=== PATIENT | male | born 1975 ===

== ENCOUNTER 2020-03-31 12:01 | Inpatient (IN) | payer MEDICARE ==
[~2020-03-31] VITALS: Ht 172.7 cm; Wt 72.7 kg
[2020-03-31 13:02] LABS: BASOPHILS 0.1 % (0-2); EOSINOPHILS 1.7 % (0-7); HEMATOCRIT 40.9 % (42.0-54.0); HEMOGLOBIN 13.9 g/dL (13.5-17.5); IMMATURE GRANULOCYTES 0.3 % (0-5); MCH 30.9 pg (26.0-34.0); MCV 90.9 fL (80.0-100.0); MEAN PLATELET VOLUME 9.7 fL (7.4-10.4); MONOCYTES 8.2 % (2-11); NEUTROPHILS 69.7 % (40-80); PLATELET COUNT 181 10x3/uL (130-400); RDW 12.8 % (11.5-14.5); WBC 9.7 10x3/uL (4.8-10.8)
[2020-03-31 13:06] LABS: CALC OSMOLALITY 278 mosm/kg (275-300); CALCIUM 8.2 mg/dL (8.5-10.1); CARBON DIOXIDE 28.9 mmol/L (21.0-32.0); CHLORIDE - SERUM 103 mmol/L (98-107); CREATININE - SERUM 0.9 mg/dL (0.6-1.3); GLUCOSE 143 mg/dL (74-106); POTASSIUM - SERUM 3.6 mmol/L (3.5-5.1); SODIUM 140 mmol/L (136-145); UREA NITROGEN 7 mg/dL (7-18); eGFR NON AFRICAN AMERICAN > 90 mL/min (90-120)
[2020-03-31 13:07] LABS: APTT 33.8 SECONDS (22.8-39.4); PROTIME 13.2 SECONDS (11.6-15.0)
[2020-03-31 13:12] LABS: ALBUMIN 3.1 g/dL (3.4-5.0); ALKALINE PHOSPHATASE 84 U/L (30-120); ALT (SGPT) 13 U/L (10-68); BILIRUBIN - TOTAL 0.24 mg/dL (0.2-1.3); PROTEIN - SERUM 6.7 g/dL (6.4-8.2)
[2020-03-31 15:46] VITALS: BP 125/70
[2020-03-31] MEDS ORDERED: HALDOL5 MG PO (16:59)
[2020-03-31] MEDS ORDERED: ZYPREXA10 MG PO (17:00)
--- NOTE | 2020-03-31 17:00 | NUR ---
RECEIVED TO ROOM 2202 VIA WC FROM ER. A/O X3. NO C/O AT THIS TIME. QUARTER SIZED WOUND TO BACK OF NECK, PURULENT DRAINAGE NOTED. CLEANED WITH NS AND COVERED WITH 4X4 PER PATIENT REQUEST. SUPPER SERVED IN ROOM. ATE ALL OF MEAL.
[2020-03-31] MEDS ORDERED: BENZTROPINE MESY2 MG PO (17:01)
[2020-03-31 17:06] VITALS: BP 148/78
[2020-03-31 17:30] VITALS: BP 148/78; BMI 24.3
--- NOTE | 2020-03-31 19:07 | NUR ---
ATE ALL OF DINNER. DENIES NEEDS.
--- NOTE | 2020-03-31 19:30 | NUR ---
RECEIVED REPORT, DENIES NEEDS, BED LOWEST POSITION, CALL LIGHT IN REACH, IV PATENT, INFORMED PT TO NOTIFY STAFF IF THEY NEED ANYTHING
[2020-03-31 20:47] VITALS: BP 142/60
[2020-04-01 00:58] VITALS: BP 135/82
[2020-04-01 05:32] VITALS: BP 118/77
[2020-04-01 07:13] LABS: BASOPHILS 0.1 % (0-2); EOSINOPHILS 2.6 % (0-7); HEMATOCRIT 46.5 % (42.0-54.0); HEMOGLOBIN 15.3 g/dL (13.5-17.5); IMMATURE GRANULOCYTES 0.3 % (0-5); MCH 30.8 pg (26.0-34.0); MCHC 32.9 g/dL (31.0-37.0); MEAN PLATELET VOLUME 10.4 fL (7.4-10.4); MONOCYTES 9.8 % (2-11); NEUTROPHILS 56.2 % (40-80); RBC 4.97 10x6/uL (4.20-6.10); RDW 13.2 % (11.5-14.5); WBC 9.4 10x3/uL (4.8-10.8)
[2020-04-01 07:17] LABS: MCV 93.6 fL (80.0-100.0); PLATELET COUNT 229 10x3/uL (130-400)
--- NOTE | 2020-04-01 07:30 | NUR ---
AWAKE AND ALERT. UP TO BR PER SELF. REPORTED GOOD NORMAL BM. LUNGS ARE CLEAR BILATERALLY, NO COUGH NOTED. SKIN IS INTACT WITHOUT REDNESS EXCEPT WOUND TO BACK OF NECK WHICH HAS A DRY INTACT DRESSING IN PLACE. IV TO LEFT FOREARM IS PATENT WITHOUT REDNESS AT INSERTION SITE. DENIES NEEDS.
[2020-04-01 07:51] LABS: ALBUMIN 3.5 g/dL (3.4-5.0); ALKALINE PHOSPHATASE 93 U/L (30-120); ALT (SGPT) 16 U/L (10-68); BILIRUBIN - TOTAL 0.25 mg/dL (0.2-1.3); CALC OSMOLALITY 280 mosm/kg (275-300); CALCIUM 8.7 mg/dL (8.5-10.1); CARBON DIOXIDE 28.7 mmol/L (21.0-32.0); CHLORIDE - SERUM 104 mmol/L (98-107); CREATININE - SERUM 0.8 mg/dL (0.6-1.3); PROTEIN - SERUM 7.2 g/dL (6.4-8.2); SODIUM 143 mmol/L (136-145); UREA NITROGEN 8 mg/dL (7-18); eGFR NON AFRICAN AMERICAN > 90 mL/min (90-120)
[2020-04-01 08:01] LABS: GLUCOSE 62 mg/dL (74-106)
[2020-04-01 09:37] VITALS: BP 117/63
[2020-04-01 10:52] VITALS: Ht 172.7 cm; Wt 72.7 kg
--- NOTE | 2020-04-01 10:58 | NUR ---
ATE ALL OF BREAKFAST. TOOK AM MEDS WITHOUT DIFFICULTY.
[2020-04-01 12:00] VITALS: BP 134/79
--- NOTE | 2020-04-01 12:00 | NUR ---
AMELIA ANXIOUS TO BE ABLE TO GO HOME TODAY. STATED HE ISN'T DIABETIC AND WOULDNT LET US DO HIS FS. DOESN'T WANT IV AB AT THIS TIME. STATED HE IS GOING HOME.
[2020-04-01] MEDS ORDERED: VIBRAMYCIN 100100 MG PO (13:12)
--- NOTE | 2020-04-01 14:45 | NUR ---
DISCHARGED TO HOME AMBULATORY PER SELF. DISCHARGE INSTRUCTIONS GIVEN BOTH VERBALLY AND WRITTEN. ALL QUESTIONS ANSWERED. PATIENT VERBALYZED UNDERSTANDING OF SAME. IV TO LEFT FOREARM D/C WITH CATHETER INTACT. ALL BELONGINGS WITH PATIENT.
--- NOTE | 2020-04-01 16:33 | MORECARE ---
CASE MANAGEMENT DISCHARGE SUMMARY PATIENT: MATILDA VÁSQUEZ UNIT: [id number] ADM DATE: 03/31/20 AGE: 44 : [birth year] SEX: M ROOM/BED: D.2202 AUTHOR: ROSELINE SPIVEY PHYSICIAN: REFERRING PHYSICIAN: DAVID CUTLER MD DATE OF SERVICE: 04/01/20 Discharge Plan Patient Name: MATILDA VÁSQUEZ Facility: [facility]:[place] : 1975 Planned Disposition: Home with Home Health Anticipated Discharge Date: 04/01/20 Discharge Date: 04/01/2020 Expected LOS: 1 Initial Reviewer: FLACO Initial Review Date: 04/01/2020 Generated: 04/01/20 5:32 pm DCPIA - Discharge Planning Initial Assessment Updated by FLACO: Lamont Palumbo on 04/01/20 4:32 pm * Is the patient Alert and Oriented? Yes * How many steps to enter\exit or inside your home? 0/0 * PCP Lizandro Gross * Pharmacy [facility] * Preadmission Environment Independent [facility] * Facility Name [facility] * ADLs Independent * Equipment None * List name and contact numbers for known caregivers / representatives who currently or will assist patient after discharge: NONE * Verbal permission to speak to the caregivers and representatives has been obtained from the patient. N/A * Community resources currently utilized None * Additional services required to return to the preadmission environment? Yes * Can the patient safely return to the preadmission environment? Yes * Has this patient been hospitalized within the prior 30 days at any hospital? No External Providers External Provider: [facility] Next Contact Date: Service Request Date: Service Type: Resolution: Reviewer: Comments: Coverage Notice Reviewer: [id number] Angelita Palumbo Notice Issued Date-Time: 04/01/2020 13:45 Notice Type: IM Discharge Notice Notice Delivered To: Patient Relationship to Patient: Self Wildlife Conservation Professor Name: Delivery Method: HAND - Hand Delivered Sophie Days: Prior Verbal Notification: Recipient Understood Notice: Yes Recipient Signature: Yes Med Rec Note Co-signed by Attending: Coverage Notice Comment: DC IMM delivered, explained, signed by the patient, and placed in chart. Signed form also left with the patient. Reviewer: FLACO Morinnes Notice Issued Date-Time: 04/01/2020 13:45 Notice Type: Patient Choice Letter Notice Delivered To: Patient Relationship to Patient: Self Wildlife Conservation Professor Name: Delivery Method: HAND - Hand Delivered Sophie Days: Prior Verbal Notification: Recipient Understood Notice: Yes Recipient Signature: Yes Med Rec Note Co-signed by Attending: Coverage Notice Comment: CARE IV HHS Patient Name: MATILDA VÁSQUEZ Page [id number] at 1633 All edits/amendments must be made on the electronic document DICTATION DATE: 04/01/20 1633 TOPSTITCHER LOCKSTITCH: KATIE 04/01/20 1633 RPT#: [id number] DC DATE:04/01/20 STATUS: DIS IN [facility] [address] [place] [address] END OF REPORT
--- NOTE | 2020-04-01 16:40 | MORECARE ---
CASE MANAGEMENT DISCHARGE SUMMARY PATIENT: MATILDA VÁSQUEZ UNIT: [id number] ADM DATE: 03/31/20 AGE: 44 : 77 SEX: M ROOM/BED: D.2202 AUTHOR: ROSELINE SPIVEY PHYSICIAN: REFERRING PHYSICIAN: DAVID CUTLER MD DATE OF SERVICE: 04/01/20 Discharge Plan Patient Name: MATILDA VÁSQUEZ Facility: [facility]:[place] : 1975 Planned Disposition: Home with Home Health Anticipated Discharge Date: 04/01/20 Discharge Date: 04/01/2020 Expected LOS: 1 Initial Reviewer: [id number] Initial Review Date: 04/01/2020 Generated: 04/01/20 5:39 pm Comments DCP- Discharge Planning Updated by [id number]: Lamont Palumbo on 04/01/20 3:[address] Patient Name: MATILDA VÁSQUEZ Admission Status: Elective Accout number: [id number] Admission Date: 03-31-2020 : 1975 Admission Diagnosis: Attending: DAVID CUTLER Current LOS: 1 Anticipated DC Date: 04-01-2020 Planned Disposition: Home with Home Health Primary Insurance: MEDICARE A & B Discharge Planning Comments: CM met with patient for DC planning. Patient is in agreement with DC Plan. Patient lives in a group home home at [facility]. Patient has 0 steps to navigate to enter his home. PCP: Dr. QURESHI. Pharmacy: [facility]. DME: NONE. Emergency contact: NONE. CM discussed HHS, OP Therapy, SNF, Rehab. Patient states he would like [facility]. GORGE signed for same. CM notified Jacque with [facility] ([phone]) and faxed clinicals. Patient voices no other needs at this time. CM will follow and assist PRN.3 Shingle Trimmer: Lamont Palumbo DCPIA - Discharge Planning Initial Assessment Updated by [id number]: Lamont Palumbo on 04/01/20 4:32 pm * Is the patient Alert and Oriented? Yes * How many steps to enter\exit or inside your home? 0/0 * PCP Lizandro Gross * Pharmacy [facility] * Preadmission Environment Independent [facility] * Facility Name [facility] * ADLs Independent * Equipment None * List name and contact numbers for known caregivers / representatives who currently or will assist patient after discharge: NONE * Verbal permission to speak to the caregivers and representatives has been obtained from the patient. N/A * Community resources currently utilized None * Additional services required to return to the preadmission environment? Yes * Can the patient safely return to the preadmission environment? Yes * Has this patient been hospitalized within the prior 30 days at any hospital? No Coverage Notice Reviewer: FLACO Palumbo Notice Issued Date-Time: 04/01/2020 13:45 Notice Type: IM Discharge Notice Notice Delivered To: Patient Relationship to Patient: Self Receiving Barn Custodian Name: Delivery Method: HAND - Hand Delivered Sophie Days: Prior Verbal Notification: Recipient Understood Notice: Yes Recipient Signature: Yes Med Rec Note Co-signed by Attending: Coverage Notice Comment: DC IMM delivered, explained, signed by the patient, and placed in chart. Signed form also left with the patient. Reviewer: [id number] Palumbo Notice Issued Date-Time: 04/01/2020 13:45 Notice Type: Patient Choice Letter Notice Delivered To: Patient Relationship to Patient: Self Receiving Barn Custodian Name: Delivery Method: HAND - Hand Delivered Sophie Days: Prior Verbal Notification: Recipient Understood Notice: Yes Recipient Signature: Yes Med Rec Note Co-signed by Attending: Coverage Notice Comment: CARE IV HHS Last DP export: 04/01/20 3:33 Patient Name: MATILDA VÁSQUEZ Page [phone] at 1640 All edits/amendments must be made on the electronic document DICTATION DATE: 04/01/20 163 ORE ROASTER: KATIE 04/01/20 163 RPT#: [id number] DC DATE:04/01/20 STATUS: DIS IN [facility] [address] [place] [address] END OF REPORT
--- NOTE | 2020-04-02 09:33 | MORECARE ---
CASE MANAGEMENT DISCHARGE SUMMARY PATIENT: MATILDA VÁSQUEZ UNIT: [id number] ADM DATE: 03/31/20 AGE: 44 : 77 SEX: M ROOM/BED: D.2202 AUTHOR: ROSELINE SPIVEY PHYSICIAN: REFERRING PHYSICIAN: DAVID CUTLER MD DATE OF SERVICE: 04/02/20 Discharge Plan Patient Name: MATILDA VÁSQUEZ Facility: [facility]:[place] : 1975 Planned Disposition: Home with Home Health Anticipated Discharge Date: 04/01/20 Discharge Date: 04/01/2020 Expected LOS: 1 Initial Reviewer: [id number] Initial Review Date: 04/01/2020 Generated: 04/02/20 10:32 am Comments DCP- Discharge Planning Updated by [email or web address]: Lamont Palumbo on 04/01/20 3:[address] Patient Name: MATILDA VÁSQUEZ Admission Status: Elective Accout number: [id number] Admission Date: 03-31-2020 : 1975 Admission Diagnosis: Attending: DAVID CUTLER Current LOS: 1 Anticipated DC Date: 04-01-2020 Planned Disposition: Home with Home Health Primary Insurance: MEDICARE A & B Discharge Planning Comments: CM met with patient for DC planning. Patient is in agreement with DC Plan. Patient lives in a assisted home at [facility]. Patient has 0 steps to navigate to enter his home. PCP: Dr. QURESHI. Pharmacy: [facility]. DME: NONE. Emergency contact: NONE. CM discussed HHS, OP Therapy, SNF, Rehab. Patient states he would like [facility]. GORGE signed for same. CM notified Jacque with [facility] ([phone]) and faxed clinicals. Patient voices no other needs at this time. CM will follow and assist PRN.3 Fertilizer Mixer: Lamont Palumbo DCPIA - Discharge Planning Initial Assessment Updated by [email or web address]: Lamont Palumbo on 04/01/20 4:32 pm * Is the patient Alert and Oriented? Yes * How many steps to enter\exit or inside your home? 0/0 * PCP Lizandro Gross * Pharmacy [facility] * Preadmission Environment Independent [facility] * Facility Name [facility] * ADLs Independent * Equipment None * List name and contact numbers for known caregivers / representatives who currently or will assist patient after discharge: NONE * Verbal permission to speak to the caregivers and representatives has been obtained from the patient. N/A * Community resources currently utilized None * Additional services required to return to the preadmission environment? Yes * Can the patient safely return to the preadmission environment? Yes * Has this patient been hospitalized within the prior 30 days at any hospital? No Coverage Notice Reviewer: FLACO Palumbo Notice Issued Date-Time: 04/01/2020 13:45 Notice Type: IM Discharge Notice Notice Delivered To: Patient Relationship to Patient: Self Vending Supervisor Name: Delivery Method: HAND - Hand Delivered Sophie Days: Prior Verbal Notification: Recipient Understood Notice: Yes Recipient Signature: Yes Med Rec Note Co-signed by Attending: Coverage Notice Comment: DC IMM delivered, explained, signed by the patient, and placed in chart. Signed form also left with the patient. Reviewer: [id number] Palumbo Notice Issued Date-Time: 04/01/2020 13:45 Notice Type: Patient Choice Letter Notice Delivered To: Patient Relationship to Patient: Self Vending Supervisor Name: Delivery Method: HAND - Hand Delivered Sophie Days: Prior Verbal Notification: Recipient Understood Notice: Yes Recipient Signature: Yes Med Rec Note Co-signed by Attending: Coverage Notice Comment: CARE IV HHS Last DP export: 04/01/20 3:40 Patient Name: MATILDA VÁSQUEZ Page [id number] at 0933 All edits/amendments must be made on the electronic document DICTATION DATE: 04/02/20931 COLD MILL OPERATOR: KATIE 04/02/20931 RPT#: [id number] DC DATE:04/01/20 STATUS: DIS IN [facility] [address] [place] [address] END OF REPORT
== END 2020-04-01 14:46 | disposition home health service (06) | DRG 603 ==
LOC: D.ER 12:01 → D.MS 12:54 → D.EDHOLD 12:54 → D.MS 15:50
PROVIDERS: Family Medicine; ADMIT Emergency Medicine; ATTEND Emergency Medicine
DX: L02.11 Cutaneous abscess of neck (principal); F17.200 Nicotine dependence, unspecified, uncomplicated